=== PATIENT | female | born 1940 | race Caucasian/White ===

== ENCOUNTER → 2018-07-27 | Outpatient (CLI) | payer OTHER ==
[2018-07-21 13:45] LABS: HEMATOCRIT 34.3 % (37.0-47.0); MCH 30.2 pg (26.0-34.0); MCHC 34.9 g/dL (28.0-37.0); MCV 86.6 fL (80.0-100.0); MPV 6.5 fl. (7.2-11.1); RBC 3.96 mil/uL (4.20-5.00); RDW-CV 12.9 % (10.5-14.5); WBC 8.3 thou/uL (4.0-11.0)
--- NOTE | 2018-07-21 13:49 | EKG ---
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
[2018-07-21 13:53] LABS: INR 1.1; PROTIME 10.8 Seconds (9.20-11.50)
[2018-07-21 14:02] LABS: CALCIUM 9.7 mg/dL (8.5-10.1); CREATININE 0.7 mg/dL (0.6-1.3); POTASSIUM 4.4 mmol/L (3.5-5.1); TOTAL BILIRUBIN 0.3 mg/dL (<0.1-1.0); TOTAL PROTEIN 7.5 g/dL (6.4-8.2)
[~2018-07-27] VITALS: Ht 165.1 cm; Wt 79.4 kg
[~2018-07-27] MED LIST: ASPIR 8181 MG PO; ATORVASTATIN CA40 MG PO; CALCIUM CITRAT1 EAC8 PO; CBD OIL PO; CYMBALTA60 MG PO; ETODOLAC 400 M400 M1 PO; LASIX 40 MG TAB40 M2 PO; LISINOPRIL10 MG PO; MIRALAX17 GM PO; POTASSIUM20 PO; TOPROL XL25 MG PO; TRAMADOL 50 MG50 MG PO; ZANAFLEX4 MG PO
== END ==
LOC: M.LAB 14:21 → M.PRE 08-01 07:48 → EDSTATUS 08-01 10:25 → M.PRE 08-01 14:17
PROVIDERS: Orthopaedic Surgery
DX: Z01.810 Encounter for preprocedural cardiovascular examination (principal); I49.1 Atrial premature depolarization; M19.012 Primary osteoarthritis, left shoulder